=== PATIENT | female | born 1955 | race Caucasian/White ===

== ENCOUNTER 2017-09-22 09:53 | Outpatient (CLI) | payer OTHER | END 2017-09-22 09:54 | disposition home or self-care (01) | LOC: BICRAD 09:53 | PROVIDERS: ATTEND Internal Medicine | DX: Z02.71 Encounter for disability determination (principal); Z98.890 Other specified postprocedural states ==

== ENCOUNTER 2022-06-16 10:11 | Outpatient (CLI) | payer OTHER | END 2022-06-16 10:12 | disposition home or self-care (01) | LOC: NM 10:11 | PROVIDERS: ATTEND Orthopaedic Surgery | DX: T84.031D Mechanical loosening of internal left hip prosthetic joint, subsequent encounter (principal) | CPT/HCPCS: 78315; A9503 ==